=== PATIENT | male | born 1965 | race Caucasian/White ===

== ENCOUNTER → 2018-03-30 | Outpatient (CLI) | payer OTHER ==
[~2018-03-30] MED LIST: CATHETER FLUSH 10 ML SYR IV PRN; IOHEXOL 350 MG/ML 100 ML (OMNIPAQUE 350) VIAL IV ONE; NS 250 ML (IVPB) BAG IV ONE
--- NOTE | 2018-03-30 20:05 | Diagnostic Imaging Report ---
PROCEDURE: CT abdomen and pelvis with contrast. TECHNIQUE: Multiple contiguous axial images were obtained through the abdomen and pelvis after administration of intravenous contrast. INDICATION: Left lower quadrant pain with abdominal bulge. Previous appendectomy. FINDINGS: The lung bases are clear. The liver appears normal. Gallbladder and bile ducts are normal. The pancreas and spleen are normal. The adrenal glands are normal. The kidneys are normal. There is normal enhancement of the abdominal organs and vessels following IV contrast. Aorta is quite atherosclerotic though there is no evidence of aneurysm. There is noted enhancing well-circumscribed soft tissue mass in left inguinal region measuring 3 cm. There is mild adjacent edema of the subcutaneous fat. This enhances similar to the adjacent lymph nodes. There is no evidence of ventral hernia or inguinal hernia. The stomach and small bowel are not distended. The colon shows normal stool and gas pattern. There is no evidence of diverticulitis. Prostate is mildly enlarged. Bladder is not distended. There are no bony lesions. IMPRESSION: 1. Findings are consistent with enlarged left inguinal lymph node measuring 3 cm with probable inflammatory changes associated with this. Underlying malignancy could not be excluded. 2. No acute intra-abdominal findings are seen. These findings were called and discussed with Dr. Thayer. Dictated by: Dictated on workstation # [id number]
== END ==
LOC: RAD 19:20
PROVIDERS: ATTEND Surgery
DX: R10.32 Left lower quadrant pain (principal); R19.04 Left lower quadrant abdominal swelling, mass and lump
CPT/HCPCS: 74177

== ENCOUNTER → 2018-03-30 | Outpatient (CLI) | payer OTHER ==
[2018-03-30 19:00] LABS: BASOPHILS % (AUTO) 0 % (0-10); EOSINOPHILS # (AUTO) 0.2 10^3/uL (0.0-0.3); EOSINOPHILS % (AUTO) 2 % (0-10); HEMATOCRIT 40 % (40-54); HEMOGLOBIN 14.1 G/DL (13.3-17.7); LYMPHOCYTES # (AUTO) 1.9 X 10^3 (1.0-4.0); LYMPHOCYTES % (AUTO) 24 % (12-44); MEAN CORPUSCULAR HEMOGLOBIN 30 PG (25-34); MEAN CORPUSCULAR HGB CONC 35 G/DL (32-36); MEAN CORPUSCULAR VOLUME 84 FL (80-99); MEAN PLATELET VOLUME 9.6 FL (7.4-10.4); MONOCYTES # (AUTO) 0.8 X 10^3 (0.0-1.0); MONOCYTES % (AUTO) 10 % (0-12); NEUTROPHILS # (AUTO) 4.9 X 10^3 (1.8-7.8); NEUTROPHILS % (AUTO) 63 % (42-75); PLATELET COUNT 250 10^3/uL (130-400); RED BLOOD COUNT 4.72 10^6/uL (4.35-5.85); RED CELL DISTRIBUTION WIDTH 12.9 % (10.0-14.5); WHITE BLOOD COUNT 7.8 10^3/uL (4.3-11.0)
[2018-03-30 19:18] LABS: ALANINE AMINOTRANSFERASE 31 U/L (0-55); ALBUMIN 4.5 GM/DL (3.2-4.5); ALKALINE PHOSPHATASE 53 U/L (40-136); BILIRUBIN,TOTAL 0.6 MG/DL (0.1-1.0); BUN/CREATININE RATIO 21; CALCIUM 9.5 MG/DL (8.5-10.1); CARBON DIOXIDE 22 MMOL/L (21-32); CHLORIDE 109 MMOL/L (98-107); CREATININE SERUM 0.75 MG/DL (0.60-1.30); GFR ESTIMATED > 60; GLUCOSE 98 MG/DL (70-105); SODIUM 140 MMOL/L (135-145); TOTAL PROTEIN 7.5 GM/DL (6.4-8.2)
== END ==
LOC: LAB 18:41
PROVIDERS: ATTEND Nurse Practitioner Family
DX: R10.84 Generalized abdominal pain (principal)
CPT/HCPCS: 36415; 80053; 85025

== ENCOUNTER 2020-04-27 10:25 | Outpatient (RCR) | payer OTHER | END 2020-05-05 10:33 | disposition home or self-care (01) | PROVIDERS: ATTEND Nurse Practitioner | DX: M25.512 Pain in left shoulder (principal); M54.6 Pain in thoracic spine ==

== ENCOUNTER → 2020-12-08 | Outpatient (CLI) | payer OTHER ==
--- NOTE | 2020-12-08 11:53 | Diagnostic Imaging Report ---
PROCEDURE: CT abdomen and pelvis without contrast. TECHNIQUE: Multiple contiguous axial images were obtained through the abdomen and pelvis without the use of intravenous contrast. Auto Exposure Controls were utilized during the CT exam to meet ALARA standards for radiation dose reduction. INDICATION: Prostate carcinoma. COMPARISON: Correlation is made with prior CT 03/30/2018. FINDINGS: The lung bases are clear. No discrete liver mass is identified. Gallbladder is unremarkable. There is no biliary ductal dilatation. The pancreas and spleen are unremarkable. No adrenal mass is identified. Kidneys are without calculi or hydronephrosis. Aorta is calcified but nonaneurysmal. No central retroperitoneal or mesenteric lymphadenopathy is identified. The small and large bowel loops are normal caliber. No obstruction is seen. No free fluid or fluid collection is identified. Imaging through the pelvis demonstrates the bladder to be decompressed. Prostate is unremarkable. No definite iliac or inguinal lymphadenopathy is identified. The bony structures are nonacute. No osteoblastic or osteolytic lesions are identified. IMPRESSION: 1. Unremarkable noncontrast CT abdomen and pelvis. There is no evidence of abdominal or pelvic lymphadenopathy or evidence of metastatic disease. 2. No acute features identified. Dictated by: Dictated on workstation # [id number]
--- NOTE | 2020-12-08 16:07 | Diagnostic Imaging Report ---
INDICATION: Prostate cancer. Patient was administered 25.0 mCi technetium 99m MDP intravenously and whole-body imaging was performed after 3-hour delay. No prior studies are available for comparison. There is normal uptake of activity by the axial and appendicular skeleton. There is uptake by the kidneys with excretion into the urinary bladder. Mild uptake involving the proximal left tibia laterally is noted which may be degenerative. No other suspicious foci are identified. There are no findings to suggest osseous metastatic disease. IMPRESSION: No scintigraphic evidence of osseous metastatic disease. Dictated by: Dictated on workstation # [id number]
== END ==
LOC: CARD 11:00
PROVIDERS: ATTEND Urology
DX: C61 Malignant neoplasm of prostate (principal)
CPT/HCPCS: 74176; 78306; A9503

== ENCOUNTER 2021-02-08 11:14 | Emergency (ER) | payer OTHER ==
[~2021-02-08] VITALS: Ht 182.8 cm; Wt 104.3 kg
[2021-02-08 11:53] LABS: BASOPHILS % (AUTO) 0 % (0-10); EOSINOPHILS # (AUTO) 0.1 10^3/uL (0.0-0.3); EOSINOPHILS % (AUTO) 1 % (0-10); HEMATOCRIT 34 % (40-54); HEMOGLOBIN 10.7 g/dL (13.3-17.7); LYMPHOCYTES # (AUTO) 1.3 10^3/uL (1.0-4.0); LYMPHOCYTES % (AUTO) 12 % (12-44); MEAN CORPUSCULAR HEMOGLOBIN 28 pg (25-34); MEAN CORPUSCULAR HGB CONC 32 g/dL (32-36); MEAN CORPUSCULAR VOLUME 88 fL (80-99); MEAN PLATELET VOLUME 9.2 fL (9.0-12.2); MONOCYTES # (AUTO) 0.8 10^3/uL (0.0-1.0); MONOCYTES % (AUTO) 7 % (0-12); NEUTROPHILS # (AUTO) 8.6 10^3/uL (1.8-7.8); NEUTROPHILS % (AUTO) 79 % (42-75); PLATELET COUNT 397 10^3/uL (130-400); WHITE BLOOD COUNT 10.9 10^3/uL (4.3-11.0)
[2021-02-08 11:54] LABS: CLARITY,URINE CLEAR; COLOR,URINE YELLOW; GLUCOSE, URINE (UA) NEGATIVE (NEGATIVE); KETONES,URINE NEGATIVE (NEGATIVE); LEUKOCYTE ESTERASE ,URINE TRACE (NEGATIVE); NITRITE,URINE NEGATIVE (NEGATIVE); PH,URINE 5.5 (5-9); PROTEIN,URINE 2+ (NEGATIVE)
[2021-02-08] MEDS ORDERED: LACTATED RINGERS 1,000 ML IV SCH (12:00)
--- NOTE | 2021-02-08 12:04 | ED General ---
General Chief Complaint: General Problems/Pain Stated Complaint: BRUSING,DARK URINE, FEVER S/P SX 04/ Nursing Triage Note: PT AMB TO [facility] WITH S/O AFTER BEING SENT BY [facility]. PT HAD PROSTACTEMY 02/01/21 FOR CANCER. PT ALSO HAD LYMPHNODE AND NERVE REMOVAL. STATES PT HAS HAD INCREASING BRUISING ON BACK AND BLOOD IN URINE. PT HAS BROWN CATHETER IN PLACE. Nursing Sepsis Screen: No Definite Risk Source of Information: Patient Exam Limitations: No Limitations History of Present Illness Date Seen by Provider: Feb 08, 2021 Time Seen by Provider: 12:02 Initial Comments To ER with abdominal bruising, evening fevers and blood in urine. Patient had a radical prostatectomy for adenocarcinoma of the prostate at the [facility] on 02/01/2021. Fevers in the evenings up to 102. Timing/Duration: 3-4 Days Severity: Moderate Allergies and Home Medications Allergies Coded Allergies: No Known Drug Allergies (Unverified , 05/17/16) Home Medications Amoxicillin/Potassium Clav 1 Each Tablet, 1 EACH PO BID Prescribed by: TEDDY NEUMANN on 02/08/21 1351 Patient Home Medication List Home Medication List Reviewed: Yes Review of Systems Review of Systems Constitutional: see HPI, fever, malaise EENTM: see HPI Respiratory: no symptoms reported Cardiovascular: no symptoms reported Genitourinary: see HPI, hematuria Musculoskeletal: no symptoms reported Skin: no symptoms reported Psychiatric/Neurological: No Symptoms Reported Hematologic/Lymphatic: No Symptoms Reported Immunological/Allergic: no symptoms reported Past Ovchfpn-Tgzbkf-Sqwyxk Hx Patient Social History Alcohol Use: Occasionally Uses Smoking Status: Former Smoker Recent Infectious Disease Expo: No Recent Hopitalizations: No Immunizations Up To Date Tetanus Booster (TDap): Unknown Seasonal Allergies Seasonal Allergies: Yes Past Medical History Surgeries: Yes Appendectomy, Prostatectomy Respiratory: No Cardiac: No Neurological: No Reproductive Disorders: No Gastrointestinal: No Musculoskeletal: No Endocrine: No Cancer: Yes Prostate What Type of Treatment Did You: Surgical Intervention Psychosocial: No Integumentary: No Blood Disorders: No Family Medical History No Pertinent Family Hx Physical Exam Vital Signs Vital Signs - First Documented 02/08/21 11:20 Temp 36.5 Pulse 94 Resp 16 B/P (MAP) 140/117 (125) Pulse Ox 98 O2 Delivery Room Air Capillary Refill : Less Than 3 Seconds Height, Weight, BMI Height: 6'0" Weight: 215lbs. oz. 97.428303us; 31.00 BMI Method:Stated General Appearance: No Apparent Distress, WD/WN, Other (Alert and oriented no distress GCS 15. Heart rate is 88 sinus, respiratory rate is 18, oxygen 98% room air. Blood pressure 149/88.) Eyes: Bilateral Eye Normal Inspection, Bilateral Eye PERRL, Bilateral Eye EOMI Neck: Full Range of Motion, Normal Inspection Respiratory: No Accessory Muscle Use, No Respiratory Distress, Crackles (left base) Cardiovascular: Regular Rate, Rhythm, Normal Peripheral Pulses Gastrointestinal: Normal Bowel Sounds, Non Tender, Soft Extremity: Normal Capillary Refill, Normal Inspection Neurologic/Psychiatric: Alert, Oriented x3 Skin: Warm/Dry, Ecchymosis (Bruising to bilateral flanks. Incisions are clean dry and intact.) Focused Exam Lactate Level 02/08/21 11:35: Lactic Acid Level 1.11 Lactic Acid Level Laboratory Tests Test 02/08/21 11:35 Lactic Acid Level 1.11 MMOL/L (0.50-2.00) Procedures/Interventions Suture Size: 4-0 Progress/Results/Core Measures Suspected Sepsis Recent Fever Within 48 Hours: No Infection Criteria Present: None New/Unexplained Altered Menta: No Sepsis Screen: No Definite Risk SIRS Temperature: Pulse: 94 Respiratory Rate: 16 Laboratory Tests 02/08/21 11:35: White Blood Count 10.9 Blood Pressure 140 /117 Mean: 125 02/08/21 11:35: Lactic Acid Level 1.11 Laboratory Tests 02/08/21 11:35: Creatinine 0.71, Platelet Count 397, Total Bilirubin 3.4H Results/Orders Lab Results Laboratory Tests Test 02/08/21 11:30 02/08/21 11:35 02/08/21 12:05 Range/Units Urine Color YELLOW Urine Clarity CLEAR Urine pH 5.5 5-9 Urine Specific [place] 1.025 H 1.016-1.022 Urine Protein 2+ H NEGATIVE Urine Glucose (UA) NEGATIVE NEGATIVE Urine Ketones NEGATIVE NEGATIVE Urine Nitrite NEGATIVE NEGATIVE Urine Bilirubin 1+ H NEGATIVE Urine Urobilinogen >=8.0 < = 1.0 MG/DL Urine Leukocyte Esterase TRACE H NEGATIVE Urine RBC (Auto) 3+ H NEGATIVE Urine RBC 10-25 H /HPF Urine WBC 0-2 /HPF Urine Squamous Epithelial Cells NONE /HPF Urine Crystals NONE /LPF Urine Bacteria NEGATIVE /HPF Urine Casts NONE /LPF Urine Mucus SMALL H /LPF Urine Culture Indicated NO White Blood Count 10.9 4.3-11.0 10^3/uL Red Blood Count 3.84 L 4.30-5.52 10^6/uL Hemoglobin 10.7 L 13.3-17.7 g/dL Hematocrit 34 L 40-54 % Mean Corpuscular Volume 88 80-99 fL Mean Corpuscular Hemoglobin 28 25-34 pg Mean Corpuscular Hemoglobin Concent 32 32-36 g/dL Red Cell Distribution Width 15.2 H 10.0-14.5 % Platelet Count 397 130-400 10^3/uL Mean Platelet Volume 9.2 9.0-12.2 fL Immature Granulocyte % (Auto) 1 % Neutrophils (%) (Auto) 79 H 42-75 % Lymphocytes (%) (Auto) 12 12-44 % Monocytes (%) (Auto) 7 0-12 % Eosinophils (%) (Auto) 1 0-10 % Basophils (%) (Auto) 0 0-10 % Neutrophils # (Auto) 8.6 H 1.8-7.8 10^3/uL Lymphocytes # (Auto) 1.3 1.0-4.0 10^3/uL Monocytes # (Auto) 0.8 0.0-1.0 10^3/uL Eosinophils # (Auto) 0.1 0.0-0.3 10^3/uL Basophils # (Auto) 0.0 0.0-0.1 10^3/uL Immature Granulocyte # (Auto) 0.1 0.0-0.1 10^3/uL Sodium Level 134 L 135-145 MMOL/L Potassium Level 4.3 3.6-5.0 MMOL/L Chloride Level 102 98-107 MMOL/L Carbon Dioxide Level 23 21-32 MMOL/L Anion Gap 9 5-14 MMOL/L Blood Urea Nitrogen 16 7-18 MG/DL Creatinine 0.71 0.60-1.30 MG/DL Estimat Glomerular Filtration Rate > 60 BUN/Creatinine Ratio 23 Glucose Level 110 H 70-105 MG/DL Lactic Acid Level 1.11 0.50-2.00 MMOL/L Calcium Level 9.7 8.5-10.1 MG/DL Corrected Calcium 9.6 8.5-10.1 MG/DL Total Bilirubin 3.4 H 0.1-1.0 MG/DL Direct Bilirubin 1.5 H 0.0-0.3 MG/DL Aspartate Amino Transf (AST/SGOT) 66 H 5-34 U/L Alanine Aminotransferase (ALT/SGPT) 112 H 0-55 U/L Alkaline Phosphatase 108 40-136 U/L Total Protein 7.8 6.4-8.2 GM/DL Albumin 4.1 3.2-4.5 GM/DL Procalcitonin 0.12 H <0.10 NG/ML Coronavirus 2019 ([place]) Not Detected Not Detecte Micro Results Microbiology 02/08/21 Influenza Types A,B Antigen ([place]) - Final, Complete My Orders Orders - TEDDY NEUMANN APRN Cbc With Automated Diff (02/08/21 11:47) Comprehensive Metabolic Panel (02/08/21 11:47) Ua Culture If Indicated (02/08/21 11:47) Ed Iv/Invasive Line Start (02/08/21 11:47) Procalcitonin (Pct) (02/08/21 12:00) Influenza A And B Antigens (02/08/21 12:00) Covid 19 Inhouse Test (02/08/21 12:00) Chest 1 View, Ap/Pa Only (02/08/21 12:00) Ct Abdomen/Pelvis W (02/08/21 12:00) Blood Culture (02/08/21 12:00) Lactic Acid Analyzer (02/08/21 12:00) Lactated Ringers (Lr 1000 Ml Iv Solution (02/08/21 12:00) Bilirubin,Direct (02/08/21 12:10) Iohexol Injection (Omnipaque 350 Mg/Ml 1 (02/08/21 12:30) Received Contrast (Hold Metformin- Contr (02/08/21 12:30) Ns (Ivpb) (Sodium Chloride 0.9% Ivpb Bag (02/08/21 12:30) Albuterol Inhaler (Ventolin Hfa) (02/08/21 14:00) Ceftriaxone For Iv Use (Rocephin For I (02/08/21 14:00) Medications Given in ED Current Medications Medications Dose Ordered Sig/Arlene Route Start Time Stop Time Status Last Admin Dose Admin Iohexol 100 ml ONCE ONCE IV 02/08/21 12:30 02/08/21 12:31 DC 02/08/21 13:32 98 ML Sodium Chloride 100 ml ONCE ONCE IV 02/08/21 12:30 02/08/21 12:31 DC 02/08/21 13:32 80 ML Vital Signs/I&O 02/08/21 11:20 Temp 36.5 Pulse 94 Resp 16 B/P (MAP) 140/117 (125) Pulse Ox 98 O2 Delivery Room Air Capillary Refill : Less Than 3 Seconds Blood Pressure Mean: 125 Diagnostic Imaging Diagonstic Imaging: Xray Plain Films/CT/US/NM/MRI: chest Comments NAME: SARAH CONNOR [facility] REC#: [id number] PT STATUS: REG ER : 1965 PHYSICIAN: TEDDY NEUMANN APRN ADMIT DATE: 02/08/21/ER Draft Date of Exam:02/08/21 CHEST 1 VIEW, AP/PA ONLY HISTORY: Fever. COMPARISON: None. TECHNIQUE: Frontal view of the chest. FINDINGS: There is linear opacity in the left lung base. No pleural effusion or pneumothorax is seen. The cardiac silhouette is normal in size. IMPRESSION: 1. Linear opacity in the left lung base. This may represent atelectasis or infiltrate. Dictated on workstation # [id number] Dict: 02/08/21 1255 Trans: 02/08/21 1259 [id number] Interpreted by: JOSE ROBERTO GAONA MD Electronically signed by: NAME: SARAH CONNOR [facility] REC#: [id number] PT STATUS: REG ER : 1965 PHYSICIAN: TEDDY NEUMANN APRN ADMIT DATE: 02/08/21/ER Draft Date of Exam:02/08/21 CT ABDOMEN/PELVIS W PROCEDURE: CT abdomen and pelvis with contrast. TECHNIQUE: Multiple contiguous axial images were obtained through the abdomen and pelvis after administration of intravenous contrast. Auto Exposure Controls were utilized during the CT exam to meet ALARA standards for radiation dose reduction. All CT scans use one or more of the following dose optimizing techniques: automated exposure control, MA and/or KvP adjustment based on patient size and exam type or iterative reconstruction. DATE: February 08, 2021. COMPARISON: CT abdomen/pelvis December 08, 2020. INDICATION: 55-year-old male, status post prostatectomy with fever and bruising. Hematuria. FINDINGS: There are mild linear opacities in the right and left lower lobes, most compatible with atelectasis. The heart is not enlarged. There is no identified pericardial effusion. The liver is unremarkable in size and contour. There is no identified focal liver lesion. The main, right, and left portal veins are patent. The gallbladder is unremarkable. There is no biliary ductal dilation. The main pancreatic duct is not abnormally dilated. Unremarkable appearance of the pancreatic parenchyma. The spleen is normal in size. The adrenal glands are unremarkable. Unremarkable appearance of the renal parenchyma. The urinary collecting systems are not distended. There is no identified renal or ureteral stone. There is a Brown catheter within the urinary bladder which is underdistended. There is gas in the urinary bladder which could relate to recent catheterization. There is abnormal extra luminal gas in the anterior aspect of the lower abdominal cavity on axial image 77 and adjacent sequential images. There is a small volume ascites. There is no well-demarcated drainable fluid collection. The intestinal tract is not distended. There are prominent atherosclerotic calcifications. There is no identified abnormally enlarged lymph node in the abdomen or pelvis which specifically meets CT size criteria for adenopathy. There is grade 1 retrolisthesis of L5 on S1. There is severe disc height loss at this level. There are additional degenerative changes of the spine. There is no acute bony abnormality. IMPRESSION: 1. Abnormal free intraperitoneal air along the anterior aspect of the lower abdominal cavity which potentially could relate to recent surgery although should typically resolve within 7 days following surgery. 2. Small volume ascites without focal drainable fluid collection. 3. Prominent atherosclerotic disease. Dictated on workstation # [id number] Dict: 02/08/21 1343 Trans: 02/08/21 1353 [id number] Interpreted by: SWATI APONTE MD Electronically signed by: Departure Impression Primary Impression: Pneumonia Disposition: 01 HOME, SELF-CARE Condition: Stable Departure-Patient Inst. Decision time for Depature: 13:21 Referrals: NO,LOCAL PHYSICIAN (PCP/Family) Primary Care Physician Patient Instructions: Pneumonia, Adult (DC) Add. Discharge Instructions: 1. Return to ER for any concerns. Antibiotic as directed. All discharge instructions reviewed with patient and/or family. Voiced underst anding. Scripts Amoxicillin/Potassium Clav (Augmentin 875-125 Tablet) 1 Each Tablet 1 EACH PO BID, #14 TAB 0 Refills Prov: TEDDY NEUMANN APRN 02/08/21 TEDDY NEUMANN APRN Feb 08, 2021 12:04
[2021-02-08 12:08] LABS: ALANINE AMINOTRANSFERASE 112 U/L (0-55); ALBUMIN 4.1 GM/DL (3.2-4.5); ALKALINE PHOSPHATASE 108 U/L (40-136); BILIRUBIN,TOTAL 3.4 MG/DL (0.1-1.0); BUN/CREATININE RATIO 23; CALCIUM 9.7 MG/DL (8.5-10.1); CARBON DIOXIDE 23 MMOL/L (21-32); CHLORIDE 102 MMOL/L (98-107); CREATININE SERUM 0.71 MG/DL (0.60-1.30); GFR ESTIMATED > 60; GLUCOSE 110 MG/DL (70-105); POTASSIUM 4.3 MMOL/L (3.6-5.0); SODIUM 134 MMOL/L (135-145); TOTAL PROTEIN 7.8 GM/DL (6.4-8.2)
[2021-02-08 12:08] LABS: BACTERIA,URINE NEGATIVE /HPF; BILIRUBIN,URINE 1+ (NEGATIVE); WBC,URINE 0-2 /HPF
[2021-02-08 12:24] LABS: BILIRUBIN,DIRECT 1.5 MG/DL (0.0-0.3)
[2021-02-08] MEDS ORDERED: IOHEXOL 350 MG/ML 100 ML (OMNIPAQUE 350) VIAL IV ONE (12:30)
[2021-02-08] MEDS ORDERED: HOLD METFORMIN - RECEIVED CONTRAST 20 ML VIAL IV SCH (12:30)
[2021-02-08] MEDS ORDERED: NS 100 ML (IVPB) BAG IV ONE (12:30)
--- NOTE | 2021-02-08 12:59 | Diagnostic Imaging Report ---
HISTORY: Fever. COMPARISON: None. TECHNIQUE: Frontal view of the chest. FINDINGS: There is linear opacity in the left lung base. No pleural effusion or pneumothorax is seen. The cardiac silhouette is normal in size. IMPRESSION: 1. Linear opacity in the left lung base. This may represent atelectasis or infiltrate. Dictated by: Dictated on workstation # [id number]
[2021-02-08] MEDS ORDERED: AMOX-358 PO (13:51)
--- NOTE | 2021-02-08 13:54 | Diagnostic Imaging Report ---
PROCEDURE: CT abdomen and pelvis with contrast. TECHNIQUE: Multiple contiguous axial images were obtained through the abdomen and pelvis after administration of intravenous contrast. Auto Exposure Controls were utilized during the CT exam to meet ALARA standards for radiation dose reduction. All CT scans use one or more of the following dose optimizing techniques: automated exposure control, MA and/or KvP adjustment based on patient size and exam type or iterative reconstruction. DATE: February 08, 2021. COMPARISON: CT abdomen/pelvis December 08, 2020. INDICATION: 55-year-old male, status post prostatectomy with fever and bruising. Hematuria. FINDINGS: There are mild linear opacities in the right and left lower lobes, most compatible with atelectasis. The heart is not enlarged. There is no identified pericardial effusion. The liver is unremarkable in size and contour. There is no identified focal liver lesion. The main, right, and left portal veins are patent. The gallbladder is unremarkable. There is no biliary ductal dilation. The main pancreatic duct is not abnormally dilated. Unremarkable appearance of the pancreatic parenchyma. The spleen is normal in size. The adrenal glands are unremarkable. Unremarkable appearance of the renal parenchyma. The urinary collecting systems are not distended. There is no identified renal or ureteral stone. There is a Disla catheter within the urinary bladder which is underdistended. There is gas in the urinary bladder which could relate to recent catheterization. There is abnormal extra luminal gas in the anterior aspect of the lower abdominal cavity on axial image 77 and adjacent sequential images. There is a small volume ascites. There is no well-demarcated drainable fluid collection. The intestinal tract is not distended. There are prominent atherosclerotic calcifications. There is no identified abnormally enlarged lymph node in the abdomen or pelvis which specifically meets CT size criteria for adenopathy. There is grade 1 retrolisthesis of L5 on S1. There is severe disc height loss at this level. There are additional degenerative changes of the spine. There is no acute bony abnormality. IMPRESSION: 1. Abnormal free intraperitoneal air along the anterior aspect of the lower abdominal cavity which potentially could relate to recent surgery although should typically resolve within 7 days following surgery. 2. Small volume ascites without focal drainable fluid collection. 3. Prominent atherosclerotic disease. Dictated by: Dictated on workstation # [id number]
[2021-02-08] MEDS ORDERED: cefTRIAXone FOR IV USE 1,000 MG in WATER (STERILE) FOR INJECTION 10 ML IV ONE (14:00)
[2021-02-08] MEDS ORDERED: RT-ALBUTEROL INHALER HFA (VENTOLIN HFA) 18 GM IH SCH (14:00)
[2021-02-08 14:36] VITALS: BP 156/75
== END 2021-02-08 14:36 | disposition home or self-care (01) ==
LOC: EDUNIT# 11:14 → ER 11:17
DX: J18.9 Pneumonia, unspecified organism (principal); I10 Essential (primary) hypertension; Z20.822 Contact with and (suspected) exposure to COVID-19; Z85.46 Personal history of malignant neoplasm of prostate; Z87.891 Personal history of nicotine dependence
CPT/HCPCS: 36415; 71045; 74177; 80053; 81000; 82248; 83605; 84145; 85025; 87040; 87635; 87804; 96361; 96374

== ENCOUNTER → 2022-05-20 | Outpatient (CLI) | payer OTHER ==
[~2022-05-20] MED LIST changes: +AMOX-358 PO; -CATHETER FLUSH 10 ML SYR IV PRN; -IOHEXOL 350 MG/ML 100 ML (OMNIPAQUE 350) VIAL IV ONE; -NS 250 ML (IVPB) BAG IV ONE
--- NOTE | 2022-05-20 10:55 | Diagnostic Imaging Report ---
PROCEDURE: US Scrotum. TECHNIQUE: Multiple real-time grayscale images were obtained over the scrotum in various projections bilaterally. INDICATION: Left testicular lesion COMPARISON: None FINDINGS: The right testicle measures 3.8 x 2.2 x 3.7 cm in size. Vascularity and echogenicity are normal. No masses are seen. The epididymis appears normal, with a small epididymal head cyst measuring 4 mm. There is a minimal hydrocele. There is no varicocele. The left testicle measures 4.9 x 2.0 x 3.0 cm in size. Vascularity and echogenicity appear normal. The epididymis appears normal. There is no significant hydrocele. There is no varicocele. IMPRESSION: Minimal right hydrocele. No evidence of mass, orchitis or torsion. Dictated by: Dictated on workstation # [id number]
== END ==
LOC: RAD 09:15
PROVIDERS: ATTEND Urology
DX: N50.9 Disorder of male genital organs, unspecified (principal)
CPT/HCPCS: 76870

== ENCOUNTER 2022-10-28 20:45 | Outpatient (CLI) | payer OTHER | END 2022-10-29 06:39 | disposition home or self-care (01) | LOC: SLEEP 20:45 | PROVIDERS: ATTEND Nurse Practitioner | DX: G47.33 Obstructive sleep apnea (adult) (pediatric) (principal) | CPT/HCPCS: 95811 ==